=== PATIENT | female | born 1945 | race Caucasian/White ===

== ENCOUNTER 2016-04-19 17:27 | Emergency (ER) | payer MEDICARE, OTHER ==
[~2016-04-19] VITALS: Ht 152.4 cm; Wt 72.7 kg
[2016-04-19 17:29] VITALS: BP 137/82; PULSE 59; RESP 16; O2SAT 96
[2016-04-19 19:23] LABS: BASOPHILS % (AUTO) 0.3 % (0-3); EOSINOPHILS % (AUTO) 0.3 % (0-5); MONOCYTES % (AUTO) 1.5 % (4-12); Mean Corpuscular Hemoglobin 29.8 pg (27.0-35.0); Mean Corpuscular Volume 92.3 fL (81-100); Platelet Count 500 bil/L (150-400)
[2016-04-19 19:29] LABS: INR 0.94 ratio
--- NOTE | 2016-04-19 20:10 | ED.REPORT ---
HPI-General Illness Date of Service Apr 19, 2016 ED Provider: Tracey Ge MD History of Present Illness: Flora Arnold is a pleasant 70-year-old female past medical history significant for hypertension, urinary incontinence, chronic back pain, depression, cervical cancer 1976 [facility] of [facility] healthcare provider Emily RENE after a follow-up visit, 2 days following her discharge, follow-up labs revealed an elevated sedimentation rate and d-dimer(~26) in combination 3 month history of right inner thigh pain, sharp,10/10 and other times 3 /10 dull and throbbing.. She denies headache, dizziness, syncope, diaphoresis, chest pain, shortness of breath, nausea, vomiting, fever, chills, abdominal pain, diarrhea. She reports right inner thigh pain and night sweats and constipation. Mrs. Arnold was admitted to [facility] for abdominal pain nausea and vomiting fever and chills and right knee pain, that was believed to be a gout flare. She was treated with colchicine for presumed gout flare and had a CT abdomen chest that only revealed 2 abdominal hernias incarcerated with adipose tissue, and after a six-day hospital stay was released. Nursing Notes Stated Complaint: POSSIBLE BLOOD CLOT/SENT FROM DR OFFICE Chief Complaint: General Complaint Nursing Notes Reviewed: Yes Allergies: Coded Allergies: No Known Allergies (Unverified Allergy, Unknown, 07/29/14) General Time Seen by MD: 18:30 Chief Complaint Other (Right inner thigh pain. ) Hx Obtained From: Patient Sudden in Onset?: No Similar Sx Previous: Yes Past Medical History Past Medical History [facility], unspecified Hypertension Chronic back pain Depression Urinary incontinence Rubella Reports: Congestive heart failure, Hypertension Past Surgical History Hysterectomy in 1999 Cholecystectomy 1967 Social History Former smoker quit in 1978 Denies alcohol Denies substance use Alcohol Use: Denies alcohol use Drug Use: Denies drug use Other Social History: Good social support, , Local resident Ambulatory Status Independent Review of Systems Full Review of Systems Cardiovascular: Reports: Palpitations (brief and intermittent with no associated pain or other symptoms) Female: Reports: Incontinence (and specified and history of) Musculoskeletal: Reports: Back pain, Extremity pain (right inner thigh stretching from the knee to the groin), Joint pain (right knee) Psychiatric: Reports: Depression (controlled with citalopram) Complete sys rev & neg: except as marked. Physical Exam General: Elderly lady sitting in bed in no acute distress, well-developed, well-nourished, appropriately interactive HEENT: Normocephalic, atraumatic. External ears without defect. Pupils equal, round, and reactive to light and accommodation. Anicteric sclerae, moist conjunctivae, and no lid lag. Oropharynx free of erythema and cobble stoning with moist mucosa. Neck: Supple with full range of motion. No jugular venous distension. No bruits. No lymphadenopathy or thyromegaly. Cardiovascular: Regular rate and rhythm with no murmurs, rubs, or gallops appreciated Pulmonary: Clear to auscultation bilaterally with no crackles, wheezes, or rhonchi. Normal respiratory effort with no use of accessory muscles. Abdomen: Bowel tones present. Soft, obese, nontender, nondistended. No hepatosplenomegaly or masses appreciated. Extremities: No clubbing, cyanosis, edema, or lymphadenopathy appreciated. Skin: Normal temperature, turgor, and texture; no rash, ulcers, or subcutaneous nodules appreciated. Neurological: Cranial nerves grossly intact. Normal muscle strength, tone, and bulk. Coordination, and sensory function within normal limits. No known gait impairment. Psychiatric: Normal mood and affect. Alert and oriented to person, place, and time. Vital Signs Vital Signs Date Time Temp Pulse Resp B/P Pulse Ox O2 Delivery O2 Flow Rate FiO2 04/19/16 20:46 36.2 55 16 139/73 95 Room Air 04/19/16 17:29 35.8 59 16 137/82 96 Interpretation & Diagnostics Lab Results Interpretation Result Diagram: 04/19/16183804/19/16 183 Test 04/19/16 18:38 04/19/16 18:39 Hold Purple Top Tube Received (Received) Hold Blue Top Tube Received (Received) Hold Red Top Tube Received (Received) Hold Gatzke Top Tube Received (Received) Hold Mckeon Top Tube Received (Received) White Blood Count 7.9th/mm3 (3.8-10.1) Red Blood Count 3.79mil/mm3 (3.90-5.20) Hemoglobin 11.3g/dL (12.0-15.6) Hematocrit 35.0% (35.0-46.0) Mean Corpuscular Volume 92.3fL (81-100) Mean Corpuscular Hemoglobin 29.8pg (27.0-35.0) Mean Corpuscular Hemoglobin Concent 32.3% (32.0-37.0) Red Cell Distribution Width 12.2% (12.3-15.4) Platelet Count 500bil/L (150-400) Neutrophils (%) (Auto) 84.0% (40-74) Lymphocytes (%) (Auto) 13.6% (14-46) Monocytes (%) (Auto) 1.5% (4-12) Eosinophils (%) (Auto) 0.3% (0-5) Basophils (%) (Auto) 0.3% (0-3) Prothrombin Time 10.0sec (8.1-12.5) Prothromb Time International Ratio 0.94ratio Sodium Level 133mEq/L (134-144) Potassium Level 4.9mEq/L (3.5-5.2) Chloride Level 94mEq/L (97-108) Carbon Dioxide Level 25mmol/L (18-29) Blood Urea Nitrogen 16mg/dL (8-27) Creatinine 0.58mg/dL (0.57-1.00) Estimat Glomerular Filtration Rate 148mL/min (>59) Glucose Level 269mg/dL (60-99) Calcium Level 10.4mg/dL (8.5-10.1) Total Bilirubin 0.2mg/dL (0.0-1.2) Aspartate Amino Transf (AST/SGOT) 14U/L (0-50) Alanine Aminotransferase (ALT/SGPT) 34U/L (0-32) Alkaline Phosphatase 99U/L (25-165) Total Protein 7.9g/dL (6.4-8.4) Albumin 3.7g/dL (3.4-5.0) Re-Eval/Medical Decision Med Decision/Clinical Course Mrs. Flora Trujillo is an elderly individual with recent hospital stay and follow-up visit with labs revealed elevated d-dimer and sedimentation rate, likely taken due to concern for right sided pelvic DVT, was sent to the emergency department by her PA on [place]. Differential includes DVT, low back pain, ventral hernia, gout, lateral femoral cutaneous impingement, obesity related abdominal pain, nephrolithiasis. With assistance from radiology we obtained an ultrasound of the right thigh common femoral to iliofemoral and was negative for DVT. Furthermore she has no signs and symptoms of DVT such as; no erythema, edema, temperature change, as well as no signs and symptoms of pulmonary embolism such as denies shortness of breath, chest pain, weakness, dizziness, anxiety. We also obtained several basic labs CMP and CBC and coags. She is slightly hyponatremic and hyperglycemic at 269, which is most likely due to her recent prednisone prescription. At this time her vitals are stable and we believe she is safe for discharge home. Time of Eval: 19:13 Patient Status: Condition improved Re-Evaluation/Progress Note: Patient is rechecked. She is informed of her results. The patient understands and agrees with the plan to discharge. Counseled Regarding: Diagnosis, Lab results, Need for follow-up, When/why to return to ED Discharge & Departure Primary Impression: Extremity pain Extremity pain location: thigh Laterality: right Qualified Code: M79.651 - Pain in right thigh Additional Impression: Abnormal laboratory test Disposition: Home Discharge Condition All VS Reviewed: Yes Condition: Stable Patient Instructions: Deep Venous Thrombosis (ED) Referrals: Yana Pretty PA-C (PCP) Dena Attestation Portions of this note were transcribed by Tere Martin. I, Dr. Ge personally performed the history, physical exam and medical decision-making; I reviewed and confirmed the accuracy of the information in the transcribed note. Signed by: Dena Estrada, 04/19/16 2300. Attending Statement 70-year-old female sent here by clinic to rule out DVT of the pelvis.Exam: Gen: WA, NAD, A&Ox4 CV: RRR, no m/r/g Resp: CTAB, no wheezing Abd: soft, non tender, non distended, no rebound/guarding Ext: no clubbing, cyanosis, edema Patient's ultrasound was negative. She is amenable to discharge at this time and follow up with her primary care physician. She does not require pain medication at this time. copies to: Yana Pretty PA-C, COREY P DO Apr 19, 2016 18:54 TERE MARTIN Apr 19, 2016 23:16 Tracey Ge MD Apr 20, 2016 03:39
--- NOTE | 2016-04-19 20:13 | DRSVH ---
PROCEDURE: US VEINOUS LEG DUPLEX UNILATERAL, RIGHT INDICATIONS: Right inner thigh pain TECHNIQUE: Real-time imaging, as well as color and pulse Doppler interrogation, were performed of the lower extr emity deep veins from the inguinal ligament to the popliteal fossa. COMPARISON: None. FINDINGS: The deep veins are normally compressible, and free of intraluminal thrombus. Color and pu lse Doppler demonstrate normal phasic intraluminal flow. There is normal augmentation response to di stal compression maneuver. IMPRESSION: No deep vein thrombosis with leg right lower extremity. Dictated by: Elaine Cosby M.D. on 04/19/2016 at 20:10 Approved by: Elaine Cosby M.D. on 04/19/2016 at 20:10
[2016-04-19 20:46] VITALS: BP 139/73; PULSE 55; RESP 16; O2SAT 95
== END 2016-04-19 20:47 | disposition home or self-care (01) ==
LOC: SED 17:27
DX: Z00.01 Encounter for general adult medical examination with abnormal findings (principal); M79.651 Pain in right thigh; I11.0 Hypertensive heart disease with heart failure; I50.9 Heart failure, unspecified; I25.2 Old myocardial infarction; Z87.891 Personal history of nicotine dependence; Z85.41 Personal history of malignant neoplasm of cervix uteri; Z90.710 Acquired absence of both cervix and uterus